=== PATIENT | female | born 1940 | race Caucasian/White ===

== ENCOUNTER → 2017-05-20 | Outpatient (CLI) | payer MEDICARE, OTHER ==
--- NOTE | 2017-05-21 10:14 | RADIOLOGY REPORT (SQ) ---
EXAM DESCRIPTION: PET CT LIMITED COMPLETED DATE/TIME: 05/20/2017 8:34 pm REASON FOR STUDY: SOLITARY PULMONARY NODULE R91.1 SOLITARY PULMONARY NODULE COMPARISON: None. Correlation: Report from chest CT 03/21/2017 outside facility. RADIONUCLIDE AND DOSE: 11.8 mCi F18 FDG The route of agent administration: Intravenous FASTING BLOOD SUGAR: 128 mg/dl CONTRAST TYPE AND DOSE: No CT contrast given. TECHNIQUE: Blood glucose level was verified. Above dose of FDG was injected intravenously. 2-D seg mented attenuation correction images were obtained from the base of the skull to the midthighs. Nonc ontrast CT images were obtained for attenuation correction and fusion with emission images. CT image s were performed without oral or intravenous contrast and are not sensitive for parenchymal lesions. A series of overlapping emission PET images were obtained. Images reviewed and manipulated at [facility] work station by the radiologist. Images stored on PACS. LIMITATIONS: None. FINDINGS: HEAD AND NECK: No significant areas of abnormal metabolic activity in the soft tissues of the head and neck. CHEST: No areas of abnormal metabolic activity in the chest. ABDOMEN AND PELVIS: No areas of abnormal metabolic activity in the abdomen or pelvis. Expected physi ologic activity is present in the genitourinary system and bowel. PROXIMAL LOWER EXTREMITIES: No areas of abnormal metabolic activity in the soft tissues of the lower extremities. BONES: No abnormal metabolic activity in the visualized skeleton. ADDITIONAL CT FINDINGS: Left lower lobe 8 mm pulmonary nodule. Pneumobilia status post cholecystecto my. Anterior abdominal wall hernia containing fat. OTHER: No other significant findings. IMPRESSION: Non hypermetabolic left lower lobe pulmonary nodule. False negatives have been reported in lesions less than 1 cm. Continued surveillance is recommended. TECHNICAL DOCUMENTATION: JOB ID: [id number]- All Rights Reserved
== END ==
LOC: RAD 18:05
PROVIDERS: ATTEND Physician Assistant
DX: R91.1 Solitary pulmonary nodule (principal)
CPT/HCPCS: 78814; A9552

== ENCOUNTER → 2019-05-27 | Outpatient (CLI) | payer MEDICARE, OTHER ==
--- NOTE | 2019-05-28 13:56 | RADIOLOGY REPORT (SQ) ---
EXAM DESCRIPTION: PET CT SKULL/THIGH COMPLETED DATE/TIME: 05/27/2019 9:26 pm REASON FOR STUDY: OTHER NONSPECIFIC ABNORMAL FINDING OF LUNG FIELD (R91.8) R91.8 OTHER NONSPECIFIC ABNORMAL FINDING OF LUNG FIELD COMPARISON: 05/20/2017 PET-CT RADIONUCLIDE AND DOSE: 10.71 mCi F18 FDG The route of agent administration: Intravenous FASTING BLOOD SUGAR: 108 mg/dl CONTRAST TYPE AND DOSE: No CT contrast given. TECHNIQUE: Blood glucose level was verified. Above dose of FDG was injected intravenously. 2-D seg mented attenuation correction images were obtained from the base of the skull to the midthighs. Nonc ontrast CT images were obtained for attenuation correction and fusion with emission images. CT image s were performed without oral or intravenous contrast and are not sensitive for parenchymal lesions. A series of overlapping emission PET images were obtained. Images reviewed and manipulated at [facility] work station by the radiologist. Images stored on PACS. LIMITATIONS: None. FINDINGS: HEAD AND NECK: No areas of abnormal metabolic activity in the soft tissues of the head and neck. CHEST: Previous described left lower lobe nodule measures 13 x 8 mm, previously 12 x 8 mm. There is no significant increased uptake (max SUV 1.3). Background pulmonary parenchymal activity max SUV 0.7 . No other areas of abnormal FDG uptake throughout the thorax. Emphysematous change. Scattered cor onary atherosclerosis. ABDOMEN AND PELVIS: Background hepatic activity max SUV 2.8. No areas of abnormal metabolic activity in the abdomen or pelvis. Expected physiologic activity is present in the genitourinary system and bowel. Prior cholecystectomy. Aortoiliac atherosclerosis. PROXIMAL LOWER EXTREMITIES: No areas of abnormal metabolic activity in the soft tissues of the lower extremities. BONES: No abnormal metabolic activity in the visualized skeleton. ADDITIONAL CT FINDINGS: No acute findings. Chronic findings as above. IMPRESSION: 1. Grossly stable 8 x 13 mm left lower lobe pulmonary nodule compared to PET-CT dated 1 07/21/2016. No significant increased FDG uptake (max SUV 1.3) which favors a more benign pathology. 2. No other areas of abnormal uptake throughout the remainder of the scan. TECHNICAL DOCUMENTATION: JOB ID: [id number]- All Rights Reserved Reading location - IP/workstation name: [email or web address]
== END ==
LOC: RAD 05-20 13:20
PROVIDERS: ATTEND Internal Medicine Critical Care Medicine
DX: R91.8 Other nonspecific abnormal finding of lung field (principal)
CPT/HCPCS: 78815; A9552